=== PATIENT | female | born 1970 | race Caucasian/White ===

== ENCOUNTER 2020-09-10 19:35 | Emergency (ER) | payer MEDICAID, SELFPAY ==
[~2020-09-10] VITALS: Ht 154.9 cm; Wt 78.0 kg
[2020-09-10 19:37] VITALS: Ht 154.9 cm; Wt 78.0 kg
[2020-09-10 23:01] VITALS: BP 109/68
== END 2020-09-10 23:01 | disposition home or self-care (01) ==
LOC: ED 19:35
DX: U07.1 COVID-19 (principal); J12.89 Other viral pneumonia; I10 Essential (primary) hypertension; E11.9 Type 2 diabetes mellitus without complications
CPT/HCPCS: J1885; U0003